=== PATIENT | male | born 1995 | race American Indian/Alaskan Native ===

== ENCOUNTER 2017-05-02 10:58 | Emergency (ER) | payer SELFPAY ==
[2017-05-02 11:22] VITALS: BP 107/68
--- NOTE | 2017-05-02 12:44 | Emergency Department Report ---
Blank Doc - Documentation Documentation: This is a 89-year-old male who was playing basketball 2 days ago and jammed his left middle finger. Patient states he heard a pop and he has pain at the PIP joint. X-rays will be performed.
--- NOTE | 2017-05-02 13:16 | Emergency Department Report ---
HPI - General Chief Complaint: Extremity Injury, Upper Time Seen by Provider: 05/02/17 11:25 - HPI HPI: 21-year-old male who presents to ED complaining of left third digit pain. Patient states he was playing basketball when he had is finger couple of days ago. Patient states since then he has had some pain to that third digit. Patient states he is able to move it but has some pain with movement. Patient if he denies any deformity, loss of sensation, inability to use the finger. He denies fever/chills/any other trauma. ED Past Medical Hx - Past Medical History Previous Medical History?: No - Surgical History Past Surgical History?: No Additional Surgical History: T&A - Social History Smoking Status: Never Smoker Substance Use Type: None - Medications Home Medications: Home Medications Medication Instructions Recorded Confirmed Last Taken Type Naproxen [Naprosyn] 500 mg PO BID #20 tablet 05/02/17 Unknown Rx ED Review of Systems ROS: Stated complaint: FINGER PAIN Other details as noted in HPI Constitutional: denies: chills, fever Eyes: denies: eye pain, eye discharge, vision change ENT: denies: ear pain, throat pain Respiratory: denies: cough, shortness of breath, wheezing Cardiovascular: denies: chest pain, palpitations Endocrine: no symptoms reported Gastrointestinal: denies: abdominal pain, nausea, diarrhea Genitourinary: denies: urgency, dysuria Musculoskeletal: arthralgia (left 3rd finger). denies: back pain, joint swelling Skin: denies: rash, lesions Neurological: denies: headache, weakness, paresthesias Psychiatric: denies: anxiety, depression Hematological/Lymphatic: denies: easy bleeding, easy bruising Physical Exam - Physical Exam Vital Signs: Vital Signs 05/02/17 11:20 Temperature 97.8 F Pulse Rate 62 Respiratory 16 Rate Blood Pressure 107/68 O2 Sat by Pulse 100 Oximetry Physical Exam: GENERAL: Alert and oriented x3, no apparent distress, Normal Gait, atraumatic. HEAD: Head is normocephalic and a-traumatic. NECK: Supple. Non edematous, No lymphadenopathy or thyromegaly. No C-spine tenderness LUNGS: Symetrical with respiration, No wheezing, no rales or crackles, CTAB. HEART: S1, S2 present, regular rate and rhythm without murmur, no rubs, no gallops. Non tender to palpation BACK: Full range of motion, , nontender to palpation. NEUROLOGIC: The patient is cooperative with no focal neurologic deficits. Normal speech. Normal sensation in bilateral upper and lower extremities, No loss of sensation, SKIN: Warm and dry, No lesions, No ulceration or induration present. ED Course Vital Signs 05/02/17 11:20 Temperature 97.8 F Pulse Rate 62 Respiratory 16 Rate Blood Pressure 107/68 O2 Sat by Pulse 100 Oximetry ED Medical Decision Making - Medical Decision Making 21-year-old male presents with finger injury ED course: X-rays ordered. Patient received Motrin in ED. X-ray reports than above explained. Finger splint applied to left digit prior to discharge. I discussed with patient finger care, warm compressions. Discussed to follow up with primary care physician. Discussed to follow up with orthopedic doctor if symptoms persist. Patient sent home on Motrin for pain. Vital signs are normal patient is in no acute distress. Critical care attestation.: If time is entered above; I have spent that time in minutes in the direct care of this critically ill patient, excluding procedure time. ED Disposition Clinical Impression: Strain of finger of left hand Finger injury Qualifiers: Encounter type: initial encounter Disposition: DC-01 TO HOME OR SELFCARE Is pt being admited?: No Does the pt Need Aspirin: No Condition: Stable Instructions: Muscle Strain (ED), Finger Sprain (ED), Arthralgia (ED) Additional Instructions: Make sure to follow up with the primary care physician as discussed. Take all your medications as you've been prescribed. If you have any worsening symptoms or develop new symptoms please return to ED immediately. Prescriptions: Naproxen [Naprosyn] 500 mg PO BID #20 tablet Referrals: PRIMARY CARE, [Primary Care Provider] - 3-5 Days [facility] [Outside] - 3-5 Days [facility] [Outside] - 3-5 Days Forms: Accompanied Note, Work/School Release Form(ED) Time of Disposition: 13:23
--- NOTE | 2017-05-02 13:45 | XRay Report ---
LEFT HAND, 3 views: History: Injury to middle finger of right hand. The bony architecture is intact. Bony alignment is normal. On the lateral image only, there is suggestion of a subtle cortical defect at the base of the middle phalanx anteriorly. This could represent a subtle avulsion fracture. Please correlate with the images and the patient. The remaining bony structures are intact. Normal joint spaces. IMPRESSION: Possible avulsion injury, middle phalanx, third digit. Please see above and correlate with the patient.
== END 2017-05-02 13:48 | disposition home or self-care (01) ==
LOC: ED 10:58
DX: S66.313A Strain of extensor muscle, fascia and tendon of left middle finger at wrist and hand level, initial encounter (principal); W21.05XA Struck by basketball, initial encounter; Y93.89 Activity, other specified; Y92.89 Other specified places as the place of occurrence of the external cause; Y99.8 Other external cause status
CPT/HCPCS: 99283

== ENCOUNTER 2017-05-24 12:17 | Emergency (ER) | payer OTHER ==
[2017-05-24 12:29] VITALS: BP 107/54
[2017-05-24] MEDS ORDERED: MOTRIN PO ONE (14:53)
--- NOTE | 2017-05-24 16:14 | Emergency Department Report ---
HPI - General Chief Complaint: Extremity Injury, Upper Time Seen by Provider: 05/24/17 14:16 - HPI HPI: The patient is a 21-year-old male who presents for evaluation of left middle finger pain. The patient reports recurrence of pain and swelling for the past one to 2 days, constant, mild in severity, aching quality, exacerbated with movement of the finger at the PIP. The patient shares that he was diagnosed with a sprained finger after evaluation in this emergency department after jamming his finger 3 weeks ago. He denies new trauma or injury, redness, bruising, ecchymosis, fluctuance, paresthesia, or loss of motor function. ED Past Medical Hx - Past Medical History Previous Medical History?: No - Surgical History Past Surgical History?: No Additional Surgical History: T&A - Social History Smoking Status: Never Smoker Substance Use Type: None - Medications Home Medications: Home Medications Medication Instructions Recorded Confirmed Last Taken Type Naproxen [Naprosyn] 500 mg PO BID #20 tablet 05/02/17 Unknown Rx Ibuprofen [Motrin] 800 mg PO Q8HR PRN #15 tablet 05/24/17 Unknown Rx traMADol [Ultram 50 MG tab] 50 mg PO Q6HR PRN #10 tablet 05/24/17 Unknown Rx ED Review of Systems ROS: Stated complaint: LEFT HAND FINGER PAIN Other details as noted in HPI Constitutional: denies: fever ENT: denies: throat or neck pain Respiratory: denies: cough, shortness of breath Cardiovascular: denies: chest pain Endocrine: denies unexplained weight loss or gain Gastrointestinal: denies: abdominal pain, nausea Genitourinary: denies: dysuria Musculoskeletal: reports finger pain denies: leg swelling Skin: denies: rash Neurological: denies: headache Hematological/Lymphatic: denies: easy bleeding or easy bruising Psych: denies sadness or hopelessness Physical Exam - Physical Exam Vital Signs: Vital Signs 05/24/17 12:27 Temperature 97.9 F Pulse Rate 71 Respiratory 14 Rate Blood Pressure 107/54 O2 Sat by Pulse 100 Oximetry Physical Exam: General: well-nourished, well-developed, no acute distress Head: Normocephalic, atraumatic Eyes: normal sclera Neck: trachea midline, neck supple, No neck stiffness, no cervical adenopathy Respiratory: Breath sounds equal bilaterally, no wheezing, rales, or rhonchi Cardio: S1 and S2 present, no murmurs, rubs, gallops, capillary refill is brisk Musc: left middle finger PIP tenderness present, flexion and extension at the PIP joint intact, no motor or sensory deficit whatsoever in the left hand or digits of the left hand, capillary refill brisk in all digits of the left hand Skin: No rash Neuro: no facial drooping, normal speech Psych: Normal affect ED Course Vital Signs 05/24/17 12:27 Temperature 97.9 F Pulse Rate 71 Respiratory 14 Rate Blood Pressure 107/54 O2 Sat by Pulse 100 Oximetry ED Medical Decision Making - Medical Decision Making The patient was seen and examined by myself. Findings are consistent with arthralgia of the left middle finger. No signs of infection or dislocation on examination. The patient is given pain medicine. As the patient denies any new trauma, a repeat x-ray would not be obtained. The patient received x-ray here recently after jamming his finger. The x-rays reviewed by myself and was negative for acute fracture. The patient was reevaluated and reported that their symptoms were markedly improved. The patient is stable for discharge with outpatient follow-up. The patient is given follow-up and return instructions. The patient expressed understanding and agreed with the plan. The patient is discharged in stable condition. Critical care attestation.: If time is entered above; I have spent that time in minutes in the direct care of this critically ill patient, excluding procedure time. ED Disposition Clinical Impression: Pain of left middle finger Disposition: DC-01 TO HOME OR SELFCARE Is pt being admited?: No Does the pt Need Aspirin: No Condition: Stable Instructions: Jammed Finger (ED), Finger Sprain (ED), Arthralgia (ED) Referrals: CANDIS RIGGS MD [Staff Physician] - 3-5 Days Time of Disposition: 15:10
== END 2017-05-24 16:27 | disposition home or self-care (01) ==
LOC: ED 12:17
DX: M79.645 Pain in left finger(s) (principal)
CPT/HCPCS: 99282